=== PATIENT | female | born 2005 | race Two or more races ===

== ENCOUNTER 2025-03-15 19:51 | Observation (INO) | payer MEDICAID ==
[2025-03-15] MEDS ORDERED: PREN-96 PO (20:18)
--- NOTE | 2025-03-15 20:55 | DVH ---
ULTRASOUND BIOPHYSICAL PROFILE REASON FOR EXAM: POSTDATES/IUGR. ALYSA 03/16/2025. . FINDINGS: Two points each were awarded for the following: tone, breathing, movement and amniotic fluid. The amniotic fluid index was calculated. Biophysical profile score is 8 out of a possible 8. The amniotic fluid index is 16.3 cm. The heart rate is 132 beats per minute. The fetus is in cephalic position and the placenta is posterior and fundal. There is no evidence of placenta previa. IMPRESSION: BIOPHYSICAL PROFILE SCORE OF
== END 2025-03-15 21:37 | disposition home or self-care (01) ==
LOC: LDRP 19:51
PROVIDERS: ADMIT Obstetrics & Gynecology; ATTEND Obstetrics & Gynecology
DX: O62.9 Abnormality of forces of labor, unspecified (principal); Z3A.39 39 weeks gestation of pregnancy; Z98.890 Other specified postprocedural states
CPT/HCPCS: 59025; 76819; 81002; 94760; G0378

== ENCOUNTER 2025-03-16 19:09 | Inpatient (IN) | payer MEDICAID ==
--- NOTE | 2025-03-15 22:27 | DVHDS2 ---
Discharge Summary Date of Admission March 15, 2025 outpatient Date of Discharge: Mar 15, 2025 Admitting Diagnosis 39+ weeks here for NST BPP history of IUGR this ; cervix is closed thick and high she is rescheduled for induction tomorrow Sunday afternoon. NST BPP performed reassuring. Wounds: None Brief Hx & Hospital Course: Patient having pelvic and flank pain Operations or Procedures NST BPP Condition at Discharge: Good Final Diagnosis/Problems List 39+ weeks Discharge Disposition: Home Discharge Instruct/Medications Diet: Regular Activity: Light activity Activity comment: Pelvic rest kick counts labor precautions Follow Up/Referral: 24 hours Scheduled Vit W/ Ferrous Fumara ( One Daily), 1 TAB PO DAILY, (Reported) Discharge Statement: "Patient was advised to return to the ER or call 911 if any headaches, dizziness, shortness of breath, chest pain, abdominal pain, bleeding, fevers, or worsening of medical condition. Patient was counseled about treatment plan, medications, possible side effects, patientverbalized understanding. All questions were answered to the best of my ability. This discharge took greater then 30 minutes in planning, reviewing documentation, counseling the patient, and discussing with other team members." ASSESSMENT ASSESSMENT Assessment Visit Coding OBGYN Date of Service: Mar 15, 2025 Billing Provider: UGO GUADALUPE DO HARBOR TUG CAPTAIN Common Visit Codes: 73122-IVM/OBS SAME DATE (LOW), 56579-YQK/OBS SAME DATE (MOD), 78853-SFI/OBS SAME DATE (HIGH) UGO GUADALUPE DO Mar 15, 2025 22:27
[~2025-03-16] VITALS: Ht 149.9 cm; Wt 59.0 kg
[~2025-03-16 19:09] MED LIST: PREN-96 PO
[2025-03-17] MEDS: LACT. RINGERS/OXYTOCIN 20UNITS 500 ML IV ONE ×2 (14:30→15:00)
[2025-03-17] MEDS ORDERED: LIDOCAINE 2%HCL (LOCAL ANESTH.) INJ 20ML MDV IJ PRN (14:30)
[2025-03-17] MEDS ORDERED: BUTORPHANOL TARTRATE 2 MG/1 ML VIAL IV PRN (14:30)
[2025-03-17 14:56] LABS: Hematocrit 41.6 % (36.0-46.0); Hemoglobin 14.3 g/dL (12.2-16.2); Mean Corpuscular Hemoglobin 31.7 pg (28.0-32.0); Mean Corpuscular Volume 92.1 fL (80.0-100.0); Nucleated Red Blood Cells % 0.0 %
[2025-03-17 15:16] LABS: INR 0.91 (0.9-1.15); Partial Thromboplastin Time 24.3 SEC (24.5-34.5); Prothrombin Time 9.7 sec (9.3-11.8)
[2025-03-17 15:18] LABS: Alanine Aminotransferase 12 U/L (7-40); Albumin 4.3 g/dL (3.2-4.8); Alkaline Phosphatase 195 U/L (46-116); Anion Gap 10 (5-15); BUN/Creatinine Ratio 18.8 (10.0-20.0); Bilirubin, Total 0.9 mg/dL (0.2-1.0); Blood Urea Nitrogen 12 mg/dL (9-23); Calcium 10.0 mg/dL (8.7-10.4); Carbon Dioxide 25 mmol/L (20-31); Chloride 103 mmol/L (98-107); Glucose 75 mg/dL (74-106); Potassium 3.8 mmol/L (3.5-5.1); Sodium 138 mmol/L (136-145); Total Protein 7.3 g/dL (5.7-8.2)
[2025-03-17 15:28] LABS: Urine Amorphous Crystal FEW /hpf (None Seen); Urine Protein, UAD Negative (Negative)
[2025-03-17] MEDS: WITCH HAZEL-GLYCERIN PAD TOP PRN (15:33)
[2025-03-17] MEDS: DERMOPLAST 60ML BOTTLE TOP PRN (15:33)
[2025-03-17] MEDS: PHISODERM TOP SOLN 240ML BTL TOP PRN (15:33)
[2025-03-17] MEDS: LACTATED RINGER'S 1,000 ML IV SCH (15:34)
[2025-03-17 15:46] LABS: Amphetamine Screen, Urine Neg (NEGATIVE); Barbiturate Scree,Urine Neg (NEGATIVE); Benzodiazephine Screen, Urine Neg (NEGATIVE); Cannabinoid Screen, Urine Neg (NEGATIVE); Cocaine Screen, Urine Neg (NEGATIVE); Opiate Scree,Urine Neg (NEGATIVE); Phencyclidine Screen, Urine Neg (NEGATIVE)
--- NOTE | 2025-03-17 17:13 | DVHHP2 ---
OB CC & HPI Date Date of Admission: Mar 17, 2025 Patient Identification: : 1 Para: 0 EDC: Mar 16, 2025 EGA: 40 1 Chief Complaints: Reason for admission: induction of labor Indication for induction: post dates, other (evolving IUGR 13%tile per Dr. Valentine ([facility])) History of Present Complaints 20yo IUP@40.1wks presents for scheduled IOL due to post-dates and evolving IUGR 13%tile per Dr. Valentine ([facility]) Denies UC/LOF/VB/WEST/vision changes/RUQ pain. Endorses +FM. PNC: Routine PNC at [facility], adequate visits, PNC complicated by iron deficiency anemia. GTT wnl, dating based on LMP c/w 13wk sono, GBS negative. Past Medical History Cardiac: No pertinent Hx Pulmonary: No pertinent Hx Central Nervous System: No pertinent Hx GI: No pertinent Hx Hemotology/Oncology: No pertinent Hx Hepatobiliary: No pertinent Hx Psychiatric: No pertinent Hx Musculoskeletal: No pertinent Hx Rheumotologic: No pertinent Hx Infectious Disease: No peritnent Hx ENT: No pertinent Hx Renal/: No pertinent Hx Endocrine: No pertinent Hx Dermatology: No pertinent Hx Past Surgical History: No pertinent Hx OB History OB History Care: Good Care Ultrasounds: Normal mid trimester US Obstetrical Complications: None Medical Complications: None Allergies: Coded Allergies: NO KNOWN ALLERGIES (Unverified , 03/17/25) Home Meds Reported Medications Vit W/ Ferrous Fumara ( One Daily) Daily Tab, 1 TAB PO DAILY, #90 TAB 3 Refills 03/15/25 Current Medications Current Medications Medications (Trade) Dose Ordered Sig/Amado Route PRN Reason Start Time Stop Time Status Last Admin Lactated Ringer's 1,000 ml @ 125 mls/hr Q8H IV 03/17/25 14:30 03/17/25 15:34 Penicillin G Potassium 3562138 units/Dextrose 50 ml @ 100 mls/hr Q4H IV 03/17/25 18:30 Jonathan Carlson (Tucks) 1 pad PRN PRN TOP PERINEAL AREA DISCOMFORT 03/17/25 14:30 03/17/25 15:33 Sodium Lauryl Sulfate (Phisoderm) 240 ml PRN PRN TOP PERINEAL AREA DISCOMFORT 03/17/25 14:30 03/17/25 15:33 Benzocaine (Dermoplast) 1 applic PRN PRN TOP PERINEAL AREA DISCOMFORT 03/17/25 14:30 03/17/25 15:33 Butorphanol Tartrate (Stadol Injection) 1 mg Q4HPRN PRN IV MODERATE PAIN (4-6 PAIN SCALE) 03/17/25 14:30 Butorphanol Tartrate (Stadol Injection) 2 mg Q4HPRN PRN IV SEVERE PAIN (7-10 PAIN SCALE) 03/17/25 14:30 Misoprostol (Cytotec) 50 mcg Q4HPRN PRN PO CERVICAL RIPENING 03/17/25 14:30 03/17/25 15:33 Lidocaine HCl (Xylocaine) 20 ml ONCE PRN IJ PERINEAL AREA DISCOMFORT 03/17/25 14:30 Family & Social History Family/Social History Past Family/Social History: DENIES Blood Type: B+ Rubella: immune RPR/VDRL: Negative GBS Status: Positive HBsAG: Negative Review of Systems Constitutional: No symptom reported Ears, Nose, & Throat: No symptom reported Eyes: No symptom reported Pulmonary/Respiratory: No symptom reported Cardiovascular: No symptom reported Gastrointestinal: No symptom reported Genitourinary: No symptom reported Musculoskeletal: No symptom reported Skin: No symptom reported Psychiatric: No symptom reported Endocrine: No symptom reported Hemotologic/Lymphatic: No symptom reported OB Admission Exam Physical Exam Vitals: vss see cpn EFW 6 pounds 9 ounce, vertex in office last week per patient HEENT: TMs Normal, Fontanelles Normal, Nasal Mucosa Normal, Eyes non-injected, Oropharynx Normal, PERRLA, Moist Membranes, EOMI Heart: Rhythm Normal Lungs: Clear Abdomen: Gravid Extremities: Normal Reflexes: Normal Cervical Dilatation: None Effacement: 0% Station: -3 Membranes: Intact Heart Rate: 140's Accelerations: Accelerations Present Decelerations: No Decelerations Engine Hostler Variability: Average (6-25) Contractions on Admission: None OB Plan Plan Admitting Diagnosis: INDUCTION OF LABOR Plan: Induction Induction Methd: Misoprostol protocol Other Plan: A: 20yo IUP@40.1wks Induction of Labor Category I EFM Intact Membranes GBS positive P: Admit to L&D Informed consent obtained Discussed risks, benefits, alternatives of IOL. Pt consents to IOL with cytotec. Plan to begin PNC when in active labor or SROM monitoring per order Routine labs ordered Pain mgmt PRN Frequent position changes in and out of bed encouraged Limit SVE unless necessary Intrauterine resuscitation PRN Anticipate CNM will consult with Dr. Mosher PRN Visit Coding OBGYN Date of Service: Mar 17, 2025 Billing Provider: TERRELL FIORE CNM SPECIAL MACHINE OPERATOR Common Visit Codes: 64830-SIMYPAP INP/OBS CARE (HIGH) SPECIAL MACHINE OPERATOR Procedure Codes: 94120-05- NON-STRESS TEST ANGELICA OLIVER STUDENTW Mar 17, 2025 17:13
[2025-03-17] MEDS ORDERED: PENICILLIN G POTASSIUM 2,500,000 UNITS in D5W 5% 50 ML IV SCH (18:30)
[2025-03-18] VITALS (11 sets, daily range): BP systolic 106–138; BP diastolic 54–90; PULSE 72–96; RESP 15–18; TEMP 98.7–99; O2SAT 95–100
[2025-03-18] MEDS: BUTORPHANOL TARTRATE 2 MG/1 ML VIAL IV PRN (04:28)
--- NOTE | 2025-03-18 04:30 | DVHPN2 ---
CNM Labor Progress Note Date and Time Seen Date Seen: Mar 18, 2025 Time Seen: 04:25 Subjective Subjective Comment Pt is feeling pain and requesting IV pain medication. Objective Vital Signs VSS, see CPN Monitoring Method Monitoring Method: External Heart Rate Heart Rate Baseline: 140 Heart Rate Variability: Moderate Presence of FHR Accelerations: Yes Presence of FHR Decelerations: No Are all 5 Components of the FH: Yes Contractions Contractions Frequency: Other (Q1.5-3MIN) Duration of Contraction: 60 Contractions Intensity: Moderate Contractions Resting Tone: Relaxed Membranes Membranes: Intact Vaginal Exam Vag Exam Deferred: Yes (SVE by RN: ) Medications Medications - Pitocin: No Medications - Pain Medications: prn Medication - Epidural: No Medication - Other s/p 4 doses of PO cytotec Lab Results Lab Results Current Medications Medications (Trade) Dose Ordered Sig/Amado Start Time Stop Time Status Last Admin Dose Admin Lactated Ringer's 1,000 ml @ 125 mls/hr Q8H 03/17/25 14:30 03/17/25 15:34 125 MLS/HR Penicillin G Potassium 50 ml @ 100 mls/hr ONCE ONCE 03/17/25 14:30 03/17/25 14:59 DC Penicillin G Potassium 2568647 units/Dextrose 50 ml @ 100 mls/hr Q4H 03/17/25 18:30 Jonathan Carlson (Tucks) 1 pad PRN PRN 03/17/25 14:30 03/17/25 15:33 1 PAD Sodium Lauryl Sulfate (Phisoderm) 240 ml PRN PRN 03/17/25 14:30 03/17/25 15:33 240 ML Benzocaine (Dermoplast) 1 applic PRN PRN 03/17/25 14:30 03/17/25 15:33 1 APPLIC Butorphanol Tartrate (Stadol Injection) 1 mg Q4HPRN PRN 03/17/25 14:30 Butorphanol Tartrate (Stadol Injection) 2 mg Q4HPRN PRN 03/17/25 14:30 Misoprostol (Cytotec) 50 mcg Q4HPRN PRN 03/17/25 14:30 03/18/25 03:29 50 MCG Lidocaine HCl (Xylocaine) 20 ml ONCE PRN 03/17/25 14:30 Oxytocin 500 ml @ 999 mls/hr Q31M ONCE 03/17/25 14:30 03/17/25 15:00 DC Oxytocin 500 ml @ 125 mls/hr Q4H ONCE 03/17/25 15:00 03/17/25 18:59 DC Laboratory Tests Test 03/17/25 14:26 03/17/25 14:20 Range/Units Urine Color Light-yellow Yellow Urine Clarity Turbid H Clear Urine pH 7.0 5.0-9.0 Urine Specific [place] 1.018 1.001-1.035 Urine Protein Negative Negative Urine Ketones Negative Negative Urine Blood Negative Negative /uL Urine Nitrite Negative Negative Urine Bilirubin Negative Negative Urine Urobilinogen Normal Negative mg/dL Urine Leukocyte Esterase 3+ Negative /uL Urine RBC 1 0 - 4 /hpf Urine Microscopic WBC 17 H 0-5 /HPF Urine Squamous Epithelial Cells Few <5 /hpf Urine Amorphous Crystals Few None Seen /hpf Urine Bacteria Few H None Seen /hpf Urine Glucose Normal Normal mg/dL Urine Opiates Screen Neg NEGATIVE Urine Fentanyl Screen Neg NEGATIVE Urine Barbiturates Screen Neg NEGATIVE Urine Phencyclidine Screen Neg NEGATIVE Urine Amphetamines Screen Neg NEGATIVE Urine Benzodiazepines Screen Neg NEGATIVE Urine Cocaine Screen Neg NEGATIVE Urine Cannabinoids Screen Neg NEGATIVE White Blood Count 10.3 4.4-10.8 10^3/uL Red Blood Count 4.52 4.0-5.20 10^6/uL Hemoglobin 14.3 12.2-16.2 g/dL Hematocrit 41.6 36.0-46.0 % Mean Corpuscular Volume 92.1 80.0-100.0 fL Mean Corpuscular Hemoglobin 31.7 28.0-32.0 pg Mean Corpuscular Hemoglobin Concent 34.4 32.0-36.0 g/dL Red Cell Distribution Width 14.5 H 11.8-14.3 % Platelet Count 155 140-450 10^3/uL Mean Platelet Volume 10.1 6.9-10.8 fL Neutrophils (%) (Auto) 77.6 37.0-80.0 % Lymphocytes (%) (Auto) 15.4 10.0-50.0 % Monocytes (%) (Auto) 5.9 0.0-12.0 % Eosinophils (%) (Auto) 0.7 0.0-7.0 % Basophils (%) (Auto) 0.4 0.0-2.0 % Neutrophils # (Auto) 8.0 1.6-8.6 10 ^3/uL Lymphocytes # (Auto) 1.6 0.4-5.4 10 ^3/uL Monocytes # (Auto) 0.6 0-1.3 10 ^3/uL Eosinophils # (Auto) 0.1 0-0.8 10 ^3/uL Basophils # (Auto) 0 0-0.2 10 ^3/uL Nucleated Red Blood Cells 0.0 % Prothrombin Time 9.7 9.3-11.8 sec Prothrombin Time INR 0.91 0.9-1.15 Activated Partial Thromboplast Time 24.3 L 24.5-34.5 SEC Sodium Level 138 136-145 mmol/L Potassium Level 3.8 3.5-5.1 mmol/L Chloride Level 103 98-107 mmol/L Carbon Dioxide Level 25 20-31 mmol/L Anion Gap 10 5-15 Blood Urea Nitrogen 12 9-23 mg/dL Creatinine 0.64 0.550-1.02 mg/dL Glomerular Filtration Rate Calc 129 >90 mL/min BUN/Creatinine Ratio 18.8 10.0-20.0 Serum Glucose 75 74-106 mg/dL Calcium Level 10.0 8.7-10.4 mg/dL Total Bilirubin 0.9 0.2-1.0 mg/dL Aspartate Amino Transferase (AST) 24 13-40 U/L Alanine Aminotransferase (ALT) 12 7-40 U/L Alkaline Phosphatase 195 H 46-116 U/L Total Protein 7.3 5.7-8.2 g/dL Albumin 4.3 3.2-4.8 g/dL Hepatitis C Antibody Negative Negative Assessment Assessment A: 20yo IUP@40.2wks Induction of Labor Category I EFM Intact Membranes GBS positive Plan Plan P: Continue IOL with PO cytotec Plan to begin IV PCN for GBS treatment when in active labor or SROM monitoring per order Pain mgmt PRN Frequent position changes in and out of bed encouraged Limit SVE unless necessary Intrauterine resuscitation PRN Anticipate CNM will consult with Dr. Mosher PRN Plan discussed with: Patient, Spouse Visit Coding OBGYN Date of Service: Mar 18, 2025 Billing Provider: TERRELL FIORE CNM PRODUCT MANAGENT INTERN Common Visit Codes: [id number] INP/OBS CARE(HIGH) MACARENATERRELL TEJADA Mar 18, 2025 04:30
[2025-03-18] MEDS: NALOXONE HCL 0.4 MG/ML VIAL IV ONE ×2 (07:15)
[2025-03-18] MEDS: LIDOCAINE HCL 2 %PF INJ 10ML AMP IJ ONE (07:15)
--- NOTE | 2025-03-18 08:00 | DVHPN2 ---
Chief Complaints Patient reports: No new complaints Nursing reports: No new complaints Objective Vitals Vital Signs Date Time Temp Pulse Resp B/P (MAP) Pulse Ox O2 Delivery O2 Flow Rate FiO2 03/18/25 05:30 96 18 107/73 Medications Current Medications Medications (Trade) Dose Ordered Sig/Amado Route PRN Reason Start Time Stop Time Status Last Admin Benzocaine (Dermoplast) 1 applic PRN PRN TOP PERINEAL AREA DISCOMFORT 03/17/25 14:30 03/17/25 15:33 Butorphanol Tartrate (Stadol Injection) 1 mg Q4HPRN PRN IV MODERATE PAIN (4-6 PAIN SCALE) 03/17/25 14:30 03/18/25 04:28 Butorphanol Tartrate (Stadol Injection) 2 mg Q4HPRN PRN IV SEVERE PAIN (7-10 PAIN SCALE) 03/17/25 14:30 Lactated Ringer's 1,000 ml @ 125 mls/hr Q8H IV 03/17/25 14:30 03/17/25 15:34 Lidocaine HCl (Xylocaine) 20 ml ONCE PRN IJ PERINEAL AREA DISCOMFORT 03/17/25 14:30 Misoprostol (Cytotec) 50 mcg Q4HPRN PRN PO CERVICAL RIPENING 03/17/25 14:30 03/18/25 03:29 Penicillin G Potassium 0774937 units/Dextrose 50 ml @ 100 mls/hr Q4H IV 03/17/25 18:30 Sodium Lauryl Sulfate (Phisoderm) 240 ml PRN PRN TOP PERINEAL AREA DISCOMFORT 03/17/25 14:30 03/17/25 15:33 Witch Robyn (Tucks) 1 pad PRN PRN TOP PERINEAL AREA DISCOMFORT 03/17/25 14:30 03/17/25 15:33 Others ve-6cm/80/-1 Studies Laboratory Tests 03/17/25 14:20 Test 03/17/25 14:20 Range/Units Serum Glucose 75 74-106 mg/dL Ass/Plan Assessment iol Plan recieving epidural start pitocin after Visit Coding OBGYN Date of Service: Mar 18, 2025 Billing Provider: ZEKE ALLEN DO SOLE BLACKER Common Visit Codes: [id number] OBS CARE (HIGH) SOLE BLACKER Procedure Codes: 64777-19- NON-STRESS TEST ZEKE ALLEN DO Mar 18, 2025 08:00
[2025-03-18] MEDS: fentaNYL CITRATE 100 MCG/2 ML VL IV ONE (08:18)
--- NOTE | 2025-03-18 08:18 | EPIDURAL ---
Anesthesia Procedural Note - Epidural Informed consent obtained?: Yes Medication Administered: Fentanyl 100 mcg Sterile prept drape: Yes Spinal level of insertion: L4-L5 Test dose of lidocaine & Epine: Negative Infusion started: Yes Start time: 07:30 End time: 08:00 Procedure description Procedure description: Called for labor analgesia. History taken, chart reviewed and patient examined. Patient is , here for induction of labor, requesting epidural. Informed consent for CSE obtained. Sitting position, sterile prep and drape. Time out done (BP 110/80 HR 88 spO2 99). L4-5 space infiltrated with 1% lido. Epidural placed with NEERU at 7cm. 25G spinal needle +clear CSF. 25mcg fentanyl given IT (BP 105/70 HR 86 spO2 99). Epidural catheter secured at 12cm. Aspiration and test dose (3cc 1.5% lido with epi) negative. 75mcg fentanyl given via epidural catheter (BP 101/60 HR 78 spO2 99). Patient reports good pain relief. 0.2% ropivacaine infusion started. Patient experienced drop in blood pressure which responded well to IVF bolus and a dose of ephedrine IV. Will follow as needed. RODOLFO BASURTO MD Mar 18, 2025 08:18
[2025-03-18] MEDS: ROPIVACAINE HCL 100 ML ONE (08:19)
[2025-03-18] MEDS: PENICILLIN G POT 5MIL/D5 50ML 50 ML IV ONE (08:24)
[2025-03-18] MEDS: SODIUM CHLORIDE 0.9% 300 ML IUPC ONE (10:30)
[2025-03-18] MEDS: SODIUM CHLORIDE 0.9% 1,000 ML IUPC SCH (10:31)
[2025-03-18] MEDS ORDERED: fentaNYL CITRATE 100 MCG/2 ML VL ONE (12:03)
[2025-03-18] MEDS: ceFAZolin 2 GM/D5W50ml 0 ML IV ONE (12:05)
[2025-03-18] MEDS: SUCCINYLCHOLINE CHLORIDE 20 MG/ML 10ML VIAL IV ONE (12:07)
[2025-03-18] MEDS: ceFAZolin 2 GM/D5W50ml 50 ML IV ONE ×2 (12:07→12:15)
[2025-03-18] MEDS: CARBOPROST TROMETHAMINE 250 MCG/1ML VIAL IM ONE ×2 (12:10→12:38)
[2025-03-18] MEDS: LACTATED RINGER'S 1,000 ML IV ONE (12:15)
[2025-03-18] MEDS ORDERED: MORPHINE SULF PF 5 MG/10 ML VIAL ONE (12:18)
--- NOTE | 2025-03-18 12:20 | DVHHP ---
ADMIT DATE: 03/17/2025 CHIEF COMPLAINT: Nonreassuring heart tracing, fetus at risk. HISTORY OF PRESENT ILLNESS: The patient is a 20-year-old 1 para 0 with EDC 03/16, admitted for induction of labor secondary to IUGR. The patient received 2 Cytotec and dilated to 6 cm, started having late deceleration despite amnioinfusion. The patient remains with late deceleration. The patient has been taken for primary . She has had multiple prolonged late decels. PAST MEDICAL HISTORY: None. PAST SURGICAL HISTORY: None. SOCIAL HISTORY: None. FAMILY HISTORY: None. OBSTETRIC AND GYNECOLOGIC HISTORY: Primigravid. ALLERGIES: No known drug allergies. REVIEW OF SYSTEMS: Consistent with HPI. PHYSICAL EXAM: VITAL SIGNS: Stable, afebrile. HEENT: Within normal limits. CARDIOVASCULAR: Regular rate and rhythm. LUNGS: Clear to auscultation. BREASTS: Symmetrical, no masses. ABDOMEN: Gravid. PELVIC: 6 cm, -1 to 0. EXTREMITIES: No clubbing, cyanosis or edema. IMPRESSION: * Intrauterine at 40 weeks, induction of labor for IUGR. * Non-reassuring heart tracing, fetus at risk. PLAN: Primary low transverse section. Informed consent obtained. Risks, complications of surgery including infection, bleeding, hematoma formation, injury to bowel or bladder, surrounding organ, postoperative DVT, pulmonary embolism, risk of anesthesia were discussed with the patient. Options were reviewed. All questions answered. The patient fully understands. She wishes to proceed. We will plan to proceed. Indu Mosher DO MZ/SAY TID: [id number] RECEIPT: [id number]
[2025-03-18] MEDS ORDERED: MEPERIDINE HCL (25 MG/ML) 1ML VIAL ONE (12:28)
[2025-03-18] MEDS ORDERED: DIPHENOXYLATE W/ATROPINE 2.5 MG TAB ONE (12:41)
[2025-03-18] MEDS ORDERED: ceFAZolin 1GM/50ML 50 ML IV SCH (13:00)
[2025-03-18] MEDS ORDERED: ONDANSETRON HCL 4 MG/2 ML VIAL IV PRN ×3 (13:00→13:15)
[2025-03-18] MEDS: LACT. RINGERS/OXYTOCIN 20UNITS 1,000 ML IV ONE (13:00)
[2025-03-18] MEDS ORDERED: KETOROLAC TROMETH 30 MG/ML 1ML VIAL IV PRN (13:15)
[2025-03-18] MEDS ORDERED: FAMOTIDINE (10MG/ML) 2ML VL IV PRN (13:15)
[2025-03-18] MEDS ORDERED: NALOXONE HCL 0.4 MG/ML VIAL IV PRN (13:15)
[2025-03-18] MEDS ORDERED: diphenhydrAMINE HCL 50 MG/1 ML VL IV PRN (13:15)
[2025-03-18] MEDS ORDERED: HYDROmorphone HCL 2 MG/ML VL/or syr IV PRN (13:15)
[2025-03-18] MEDS: DIPHENOXYLATE W/ATROPINE 2.5 MG TAB PO ONE (13:16)
--- NOTE | 2025-03-18 15:01 | DVHOP2 ---
Operative Report DATE OF OPERATION: 03/18/25 PREOPERATIVE DIAGNOSES: Term iol for iugr ,nonreassauring fht,fetus at risk POSTOPERATIVE DIAGNOSES: same,nuchal cord,abruption,uterine atony SURGEON: Indu Mosher D.O./juve ANESTHESIOLOGIST: lucille TYPE OF ANESTHESIA : epidural CONSENT: The patient was informed of the risks and benefits of the procedure. The patient was informed of the risks and benefits of the procedure. These include but are not limited to , complications of anesthesia, postoperative infection, incomplete relief of symptoms, recurrence of symptoms, damage to bl ood vessels, nerves and tendons, deep venous thrombosis, pulmonary embolism and possible need for repeat surgery in the future. FINDINGS: Baby [b] with Apgars of [4] and [8]. Grossly normal appearing tubes and ovaries.small placental abrution noted,nuchal cordx1,efw 6-6 PROCEDURES: Primary low transverse section. PROCEDURE IN DETAIL: The patient was taken to the operating room. She already had an epidural in place. She was then placed in supine position with a leftward tilt. A Pfannenstiel skin incision was made 2 cm above the symphysis pubis. This incision was carried to the underlying layer of fascia. The fascia was nicked in the midline. The incision was extended laterally. The superior aspect of the fascial incision was grasped and e levated. The same procedure was done to the inferior aspect of the fascial incision. The rectus muscles were then in the midline. Peritoneum was identified and entered. Peritoneal incision was extended superiorly and inferiorly with good visualization of the bladder. Bladder blade was inserted. Vesicouterine peritoneum was identified and entered. Lower uterine segment was incised in a transverse fashion. The was delivered from vertex presentation. was baby [b] with Apgars [4] and [8]. Placenta was then removed manually. there was small abruption ,cord blood gases were obtained.uterine atony was noted that responded to hemobate. Uterus was exteriorized and cleared of all clots and debris. The incision was repaired using 0 Vicryl in a double-layered fashion. No bleeding was noted. Uterus was then returned to the abdomen. The gutters were cleared off all clots and debris. Peritoneum was closed using 0 Vicryl, fascia was closed using 0 Maxon, and skin was closed using laureen. The patient tolerated the procedure well. She was taken to the recovery room in stable condition. ESTIMATED BLOOD LOSS: Estimated blood loss was noted to be 1000 mL. Visit Coding OBGYN Date of Service: Mar 18, 2025 Billing Provider: INDU MOSHER DO SAUSAGE MEAT TRIMMER Common Visit Codes: 64033-[id number] OBS CARE (HIGH) SAUSAGE MEAT TRIMMER Procedure Codes: [id number] DELIVERY ONLY INDU MOSHER DO Mar 18, 2025 15:01
--- NOTE | 2025-03-18 15:03 | POSTOP ---
Post-Operative Note Post-Operative Note Preop Diagnosis iol for iugr,nonreassuring fht ,fetus at risk Postop Diagnosis: same,nuchal cordx1,abruption,uterine atony Operation performed pltcs Specimen baby boy,apgars 4-8,small abruption,nuchal cord Anesthesia: Regional Anesthesiologist: lucille Blood Loss(fluid mgmt) 1000ml Surgeon Zeke Mosher Tug Boat Engineer juve Implant na Complications & Mgmt none Date 03/18/25 Time 15:01 Visit Coding OBGYN Date of Service: Mar 18, 2025 Billing Provider: ZEKE MOSHER DO FLUID POWER MECHANIC Common Visit Codes: 77020-IMHFLEX OBS CARE (HIGH) FLUID POWER MECHANIC Procedure Codes: [id number] DELIVERY ONLY ZEKE MOSHER DO Mar 18, 2025 15:03
[2025-03-18] MEDS ORDERED: CEPH500C PO (15:06)
[2025-03-18] MEDS ORDERED: DOCU-94 PO (15:06)
[2025-03-18] MEDS ORDERED: HYDR-4072 PO (15:06)
[2025-03-18] MEDS ORDERED: IBUP-1456 PO (15:06)
[2025-03-18] MEDS: ceFAZolin 1GM/50ML 50 ML IV SCH (20:08)
[2025-03-18] MEDS: LACTATED RINGER'S 1,000 ML IV SCH (20:09)
[2025-03-18] MEDS ORDERED: PREN-96 PO (21:44)
[2025-03-18 22:17] LABS: Hematocrit 34.0 % (36.0-46.0); Hemoglobin 11.5 g/dL (12.2-16.2); Mean Corpuscular Hemoglobin 31.2 pg (28.0-32.0); Mean Corpuscular Volume 92.3 fL (80.0-100.0); Nucleated Red Blood Cells % 0.0 %
[2025-03-19] VITALS (15 sets, daily range): BP systolic 95–122; BP diastolic 48–82; PULSE 62–96; RESP 14–19; TEMP 97.9–98.7; O2SAT 95–98
--- NOTE | 2025-03-19 00:15 | DVHPN2 ---
Progress Note Date Seen: Mar 19, 2025 Subjective S: bleeding is less, tolerating clear liquids, denies lightheaded/dizziness, pain well controlled with medications, purvis in place, no flatus/BM yet, has not ambulated yet, and formula vital signs Vital Sign Date Time Temp Pulse Resp B/P (MAP) Pulse Ox O2 Delivery O2 Flow Rate FiO2 03/18/25 22:45 99.0 96 17 107/54 (71) 98 99.0 03/18/25 19:00 Room Air 03/18/25 13:09 0 03/18/25 13:09 99 Total Intake and Output 03/18/25 03/18/25 03/19/25 15:00 23:00 07:00 Output Total 600 ml 400 ml Balance -600 ml -400 ml medications Current Medications Medications Dose Ordered Sig/Amado Route Start Time Stop Time Status Last Admin Dose Admin Pipernicki Robyn 1 pad PRN PRN TOP 03/17/25 14:30 03/17/25 15:33 1 PAD Sodium Lauryl Sulfate 240 ml PRN PRN TOP 03/17/25 14:30 03/17/25 15:33 240 ML Benzocaine 1 applic PRN PRN TOP 03/17/25 14:30 03/17/25 15:33 1 APPLIC Lidocaine HCl 20 ml ONCE PRN IJ 03/17/25 14:30 Sodium Chloride 1,000 ml @ 100 mls/hr Q10H IUPC 03/18/25 09:30 03/18/25 10:31 100 MLS/HR Lactated Ringer's 1,000 ml @ 125 mls/hr Q8H IV 03/18/25 12:15 03/18/25 20:09 125 MLS/HR Ondansetron HCl 4 mg Q4HP PRN IV 03/18/25 13:00 Diphenhydramine HCl 25 mg Q4HP PRN IV 03/18/25 13:15 Ondansetron HCl 4 mg Q4HP PRN IV 03/18/25 13:15 Ketorolac Tromethamine 30 mg Q6HP PRN IV 03/18/25 13:15 03/23/25 13:14 Famotidine 20 mg Q12HR PRN IV 03/18/25 13:15 Cefazolin Sodium 50 ml @ 100 mls/hr Q8H IV 03/18/25 20:00 11/20/25 12:29 03/18/25 20:08 100 MLS/HR laboratory and microbiology Laboratory Tests 03/18/25 21:46 03/17/25 14:20 Test 03/17/25 14:20 Range/Units Serum Glucose 75 74-106 mg/dL Objective O: VSS Chest: heart sounds normal and lung sounds clear bilaterally Abd: soft, non-tender, fundus 1-U/firm/midline, active bowel sounds, no rebound or guarding Incision: sylke dressing open to air, clean/dry/intact Ext: Non-tender, No edema, 2+ BLE DTRs Lochia: minimal See lab results Problems(with codes): (1) S/P primary low transverse Assessment/Plan A: 20yo now POD#1 s/p -Continue with routine post-op PP care Plan discussed with: Patient, Spouse Visit Coding OBGYN Date of Service: Mar 19, 2025 Billing Provider: TERRELL FIORE CNM TOLL MECHANIC Common Visit Codes: [id number] INP/OBS CARE(HIGH) TERRELL FIORE CNM Mar 19, 2025 00:15
[2025-03-19] MEDS: ACETAMINOPHEN IV 1000 MG/100ML (10MG/ML) IV ONE (00:30)
[2025-03-19 06:42] LABS: Hematocrit 35.4 % (36.0-46.0); Hemoglobin 11.9 g/dL (12.2-16.2); Mean Corpuscular Hemoglobin 31.5 pg (28.0-32.0); Mean Corpuscular Volume 93.4 fL (80.0-100.0); Nucleated Red Blood Cells % 0.0 %
[2025-03-19] MEDS ORDERED: HYDROcodone-ACET 5/325MG TAB PO PRN (14:15)
[2025-03-19] MEDS: IBUPROFEN 800 MG TAB PO PRN (15:40)
[2025-03-19] MEDS: HYDROcodone-ACET 5/325MG TAB PO PRN (21:03)
[2025-03-19] MEDS: IBUPROFEN 800 MG TAB PO ONE (21:06)
[2025-03-19] MEDS: SIMETHICONE 80 MG CHEWABLE TABLET PO SCH (21:06)
[2025-03-19] MEDS: DOCUSATE SOD 100 MG CAP PO SCH (21:08)
--- NOTE | 2025-03-20 05:05 | DVHPN2 ---
Progress Note Date Seen: Mar 20, 2025 Subjective Claire is standing at bedside upon entry to the room SUBJECTIVE: -Lochia minimal -Regular diet well tolerated. -Ambulating and voiding well w/o feeling dizzy or lightheaded -Pain relieved with oral medication PRN -Passing flatus but no BM yet. - w/o problem -Desires and requests to be discharged home today (03/20) vital signs Vital Sign Date Time Temp Pulse Resp B/P (MAP) Pulse Ox O2 Delivery O2 Flow Rate FiO2 03/20/25 03:00 03/19/25 23:00 97.9 86 18 98 97.9 03/19/25 19:00 Room Air 03/18/25 13:09 0 03/18/25 13:09 99 Total Intake and Output 03/19/25 03/19/25 03/20/25 15:00 23:00 07:00 Output Total 500 ml Balance -500 ml medications Current Medications Medications Dose Ordered Sig/Amado Route Start Time Stop Time Status Last Admin Dose Admin Jonathan Carlson 1 pad PRN PRN TOP 03/17/25 14:30 03/17/25 15:33 1 PAD Sodium Lauryl Sulfate 240 ml PRN PRN TOP 03/17/25 14:30 03/17/25 15:33 240 ML Benzocaine 1 applic PRN PRN TOP 03/17/25 14:30 03/17/25 15:33 1 APPLIC Lidocaine HCl 20 ml ONCE PRN IJ 03/17/25 14:30 Cancel Ondansetron HCl 4 mg Q4HP PRN IV 03/18/25 13:00 Diphenhydramine HCl 25 mg Q4HP PRN IV 03/18/25 13:15 Ondansetron HCl 4 mg Q4HP PRN IV 03/18/25 13:15 Ketorolac Tromethamine 30 mg Q6HP PRN IV 03/18/25 13:15 03/23/25 13:14 Famotidine 20 mg Q12HR PRN IV 03/18/25 13:15 Docusate Sodium 100 mg Q12HR PO 03/19/25 22:00 03/19/25 21:08 100 MG Dimethicone 80 mg QID PO 03/19/25 18:00 03/19/25 21:08 80 MG Ibuprofen 800 mg Q8HP PRN PO 03/19/25 14:15 03/19/25 15:40 800 MG Acetaminophen/ Hydrocodone Bitart 1 tab Q4HPRN PRN PO 03/19/25 14:15 03/19/25 21:03 1 TAB Acetaminophen/ Hydrocodone Bitart 2 tab Q4HPRN PRN PO 03/19/25 14:15 laboratory and microbiology Laboratory Tests 03/19/25 05:39 03/17/25 14:20 Test 03/17/25 14:20 Range/Units Serum Glucose 75 74-106 mg/dL Objective Objective: -A&O x4. No apparent distress. Affect appropriate -Afebrile, VSS -Chest: heart and lung sounds normal. -Breasts: Nipples intact w/o cracks or soreness -Abdomen: normal BS, soft, non-tender, no rebound or guarding, fundus firm @ U- 1, -Lower abdominal incision site with dressing dry and intact. No edema, erythema or induration -Extremities: no edema or tenderness Problems(with codes): (1) S/P primary low transverse Assessment/Plan ASSESSMENT: 20 yo now [id number] operative & ppd #2 s/p Primary Section for intolerance to labor, doing well. Blood Type: B+ Breast feeding Rubella Immune PLAN: -Continue pain management with oral medications as previously ordered -Increase fluid intake and fiber in diet to promote regular bowel movements, Laxative PRN -Educated patient on self-care and warning signs to watch for, including PPH, PPD, infection, and pre-eclampsia -Continue routine care and anticipate discharge today Plan discussed with: Patient Visit Coding OBGYN Date of Service: Mar 20, 2025 Billing Provider: DINORA LUND CNM CR[employer]ICAL SYSTEMS TECHNICIAN Common Visit Codes: [id number] INP/OBS CARE(MOD) DINORA LUND CNM Mar 20, 2025 05:05
--- NOTE | 2025-03-20 05:06 | DVHDS2 ---
Obstetrics Discharge Summary Obstetrics Discharge Summary Date of Admission: Mar 17, 2025 Date of Discharge: Mar 20, 2025 Reason For Admission: Induction of Labor (for IUGR) Intrapartum Procedures: (Low Cervical Transverse) Discharge Diagnosis: Term -Delivered Discharge Information: Activity (Unrestricted. Advance as tolerated. Balance activities with rest periods. No heavy lifting, pushing or straining. Pelvic rest x 6 weeks), Diet (Routine), Medications (see med list), Instructions (Routine), Discharge to (Home), Accompanied by (partner), Discarge date (03/20/25) Discharge Care Plan Instructions - self care instructions given - emergency signs and symptoms including but not limited to pre-eclampsia precautions and signs of infection, PPH & of PPD reviewed with patient. -Follow up with OB Provider in 1 week for incision check and again at 6 weeks Visit Coding OBGYN Date of Service: Mar 20, 2025 Billing Provider: DINORA LUND CNM [employer] OPERATOR Common Visit Codes: [id number]/[id number] DISCH DAY >30MIN DINORA LUND CNM Mar 20, 2025 05:06
[2025-03-20 07:22] VITALS: BP 118/69; PULSE 81; RESP 17; TEMP 98.4; O2SAT 99
[2025-03-20 11:20] VITALS: BP 123/71; PULSE 85; RESP 17; TEMP 98.7; O2SAT 96
[2025-03-20 15:30] VITALS: BP 121/68; PULSE 79; RESP 17; TEMP 98.5; O2SAT 98
== END 2025-03-20 17:55 | disposition home or self-care (01) | DRG 540 ==
LOC: OBSVTOIN 03-17 14:15 → LDRP 03-17 14:15
PROVIDERS: ADMIT Obstetrics & Gynecology; ATTEND Obstetrics & Gynecology
PROC: 10D00Z1 Extraction of Products of Conception, Low, Open Approach (ICD-10-PCS; principal; 2025-03-18 12:14)
DX: O48.0 Post-term pregnancy (principal); R71.0 Precipitous drop in hematocrit; Z37.0 Single live birth; O36.5930 Maternal care for other known or suspected poor fetal growth, third trimester, not applicable or unspecified; O69.81X0 Labor and delivery complicated by cord around neck, without compression, not applicable or unspecified; Z3A.40 40 weeks gestation of pregnancy; O99.824 Streptococcus B carrier state complicating childbirth; O76 Abnormality in fetal heart rate and rhythm complicating labor and delivery; O62.2 Other uterine inertia
CPT/HCPCS: 36415; 59025; 80053; 80307; 81001; 85025; 85610; 85730; 86803; 86850; 86900; 86901; 94760; 94762; 96360; 96361; 96365; 96366; 96374; G0378; J0131; J0330; J2540; J2590; J7060